=== PATIENT | male | born 1980 | race Caucasian/White ===

== ENCOUNTER 2017-08-27 20:15 | Emergency (ER) | payer BC ==
[~2017-08-27] VITALS: Ht 182.9 cm; Wt 138.0 kg
[~2017-08-27 20:15] MED LIST: CALC-5 PO
[2017-08-27 20:16] VITALS: Ht 182.9 cm; Wt 138.0 kg
[2017-08-27] MEDS ORDERED: ALUMINUM/MAGNESIUM SUSP 30 ML UDC PO STA (20:29)
[2017-08-27] MEDS ORDERED: RANITIDINE HCL 150 MG TAB PO ONE (20:30)
[2017-08-27 20:42] VITALS: O2SAT 96
[2017-08-27 20:47] LABS: BASO % 0.5 %; BASO ABS # 0.02 K/uL (0-0.2); EOS % 1.7 %; EOS ABS # 0.07 K/uL (0-0.5); HEMATOCRIT 45.3 % (42-52); HEMOGLOBIN 15.5 g/dL (14.0-18.0); IG# 0.01 K/uL (0.00-0.02); LYMPH % 28.7 %; LYMPH ABS # 1.17 K/uL (1.2-3.4); MEAN CORPUSCULAR HEMOGLOBIN 29.4 pg (25-34); MEAN CORPUSCULAR HGB CONC 34.2 g/dl (32-36); MONO % 12.8 %; MONO ABS # 0.52 K/uL (0.11-0.59); NEUT % 56.1 %; NEUT ABS # 2.28 K/uL (1.4-6.5); PLATELET COUNT 162 K/uL (130-400); RED CELL DISTRIBUTION WIDTH CV 12.7 % (11.5-14.5); WHITE BLOOD COUNT 4.07 K/uL (4.8-10.8)
[2017-08-27] MEDS ORDERED: OMEP20TA PO (20:57)
[2017-08-27 20:58] LABS: PTT PATIENT 24.7 SECONDS (21.0-31.0)
[2017-08-27 21:33] LABS: ALBUMIN 4.1 gm/dl (3.4-5.0); ALKALINE PHOSPHATASE 64 U/L (45-117); ALT/SGPT 60 U/L (12-78); AST/SGOT 33 U/L (15-37); BLOOD UREA NITROGEN 14 mg/dl (7-18); CALCIUM 8.5 mg/dl (8.5-10.1); CARBON DIOXIDE 28 mmol/L (21-32); GLUCOSE 99 mg/dl (70-99); LIPASE 106 U/L (73-393); POTASSIUM 3.7 mmol/L (3.5-5.1); SODIUM 140 mmol/L (136-145)
--- NOTE | 2017-08-27 22:05 | DIAGNOSTIC IMAGING REPORT ---
GALLBLADDER-ABD LIMITED HISTORY: 37 years-old Male epigastric pain acute epigastric abdominal pain COMPARISON: None available TECHNIQUE: Multiple real-time sonographic images of the abdominal right upper quadrant were obtained assessing grayscale appearance and color flow FINDINGS: Pancreas is obscured by bowel gas. Increased echogenicity of the liver with decreased penetration. No focal hepatic mass lesions or intrahepatic biliary ductal dilation identified. There is mild layering gallbladder sludge without shadowing cholelithiasis, wall thickening or pericholecystic fluid collections. Sonographic Plaza sign was not reported. Common bile duct is normal, 6 mm. The imaged right kidney is unremarkable without hydronephrosis. IMPRESSION: 1. Gallbladder sludge without cholelithiasis or sonographic evidence of acute cholecystitis. 2. Hepatic steatosis. 3. No biliary ductal dilation. The above report was generated using voice recognition software. It may contain grammatical, syntax or spelling errors. Electronically signed by: Paulie Silva M.D. 08/27/2017 10:03 PM Dictated Date/Time: 08/27/2017 10:01 PM
--- NOTE | 2017-08-27 22:33 | DIAGNOSTIC IMAGING REPORT ---
CHEST ONE VIEW PORTABLE HISTORY: 37 years-old Male CHEST PAIN acute atypical chest pain COMPARISON: Chest radiograph 03/11/2014 TECHNIQUE: Portable AP view of the chest FINDINGS: Cardiomediastinal and hilar silhouettes are within normal limits. No pneumothorax, pleural effusion, focal airspace consolidation or overt pulmonary edema. The bones of the chest appear grossly intact. IMPRESSION: No acute process. The above report was generated using voice recognition software. It may contain grammatical, syntax or spelling errors. Electronically signed by: Paulie Silva M.D. 08/27/2017 10:32 PM Dictated Date/Time: 08/27/2017 10:30 PM
[2017-08-27 23:19] VITALS: BP 147/77; PULSE 70; TEMP 36.6; O2SAT 96
--- NOTE | 2017-08-27 23:22 | EMERGENCY ROOM VISIT NOTE ---
History Report prepared by Zeferino: Ileana Reynolds Under the Supervision of: Dr. Michele Cramer D.O. First contact with patient: 20:21 Chief Complaint: CHEST PAIN Stated Complaint: TIGHTNESS/PRESSURE IN CHECT AND UPSET STOMACH History of Present Illness The patient is a 37 year old male who presents to the Emergency Room with complaints of constant chest pain starting yesterday afternoon. The patient describes the pain as a tightness in his chest. He reports that in the past he was here for something similar and everything came back normal. He reports that he followed up with his PCP who diagnosed him with GERD and started him on Prilosec twice a day. He states that he has been having more heart burn issues in the last 4-5 days, but yesterday seemed more intense. He states that it lightened up some this morning, but became worse throughout the day. He notes that the pain radiates into his left shoulder, but not into his arms or jaw. The patient notes that the pain is worse after eating. The patient complains of upper abdominal pain and not sleeping well last night. He notes that he was sick to his stomach 3 days ago and has had diarrhea. He reports that his daughter was sick with the stomach bug and the whole family has had diarrhea recently. The patient notes that his back is tight and states that he has been following with a chiropractor for it. The patient denies shortness of breath, being worse with exertion, swelling in legs, and leg pain. Source of History: patient Onset: yesterday afternoon Position: chest Quality: other (tightness) Timing: constant Modifying Factors (Worsening): eating Associated Symptoms: + nausea, + abdominal pain, + back pain, + diarrhea, No SOB Note: The patient complains of the pain radiating into his left shoulder and not sleeping well last night. The patient denies the pain radiating to his jaw, radiating down his arms, being worse with exertion, swelling in legs, and leg pain. Review of Systems See HPI for pertinent positives & negatives. A total of 10 systems reviewed and were otherwise negative. Past Medical & Surgical Medical Problems: (1) GERD (gastroesophageal reflux disease) Family History Blood clots FH: heart attack Heart disease Social History Smoking Status: Never Smoker Marital Status: Housing Status: lives with family Occupation Status: employed Current/Historical Medications Scheduled Omeprazole (Omeprazole), 20 MG PO DAILY Allergies Coded Allergies: No Known Allergies (Unverified , 03/11/14) Physical Exam Vital Signs Date Time Temp Pulse Resp B/P (MAP) Pulse Ox O2 Delivery O2 Flow Rate FiO2 08/27/17 23:19 36.6 70 18 147/77 96 Room Air 08/27/17 22:00 77 08/27/17 21:55 71 18 132/69 96 Room Air 08/27/17 20:42 96 Room Air 08/27/17 20:42 97 Room Air 08/27/17 20:42 97 Room Air 08/27/17 20:16 36.7 86 18 146/90 98 Room Air Physical Exam GENERAL: Patient is awake, alert, and in no acute distress. Patient is resting comfortably and showing no signs of anxiety EYES: The conjunctivae are clear. The pupils are round and reactive. EARS, NOSE, MOUTH AND THROAT: The nose is without any evidence of any deformity. Mucous membranes are moist tongue is midline NECK: The neck is nontender and supple. RESPIRATORY: Normal respiratory effort is noted there is no evidence of wheezing rhonchi or rales CARDIOVASCULAR: Regular rate and rhythm noted there no murmurs rubs or gallops normal S1 normal S2 GASTROINTESTINAL: The abdomen is soft. Bowel sounds are present in all quadrants. Abdomen is nontender MUSCULOSKELETAL/EXTREMITIES: There is no evidence of gross deformity full range of motion is noted in the hips and shoulders SKIN: There is no obvious evidence of any rash. There are no petechiae, pallor or cyanosis noted. NEUROLOGIC: Patient is awake alert and oriented x3 strength is symmetric. Medical Decision & Procedures ER Provider Diagnostic Interpretation: Radiology results as stated below per my review and radiologist interpretation: CHEST ONE VIEW PORTABLE HISTORY: 37 years-old Male CHEST PAIN acute atypical chest pain COMPARISON: Chest radiograph 03/11/2014 TECHNIQUE: Portable AP view of the chest FINDINGS: Cardiomediastinal and hilar silhouettes are within normal limits. No pneumothorax, pleural effusion, focal airspace consolidation or overt pulmonary edema. The bones of the chest appear grossly intact. IMPRESSION: No acute process. The above report was generated using voice recognition software. It may contain grammatical, syntax or spelling errors. Electronically signed by: Paulie Silva M.D. 08/27/2017 10:32 PM Dictated Date/Time: 08/27/2017 10:30 PM GALLBLADDER-ABD LIMITED HISTORY: 37 years-old Male epigastric pain acute epigastric abdominal pain COMPARISON: None available TECHNIQUE: Multiple real-time sonographic images of the abdominal right upper quadrant were obtained assessing grayscale appearance and color flow FINDINGS: Pancreas is obscured by bowel gas. Increased echogenicity of the liver with decreased penetration. No focal hepatic mass lesions or intrahepatic biliary ductal dilation identified. There is mild layering gallbladder sludge without shadowing cholelithiasis, wall thickening or pericholecystic fluid collections. Sonographic Plaza sign was not reported. Common bile duct is normal, 6 mm. The imaged right kidney is unremarkable without hydronephrosis. IMPRESSION: 1. Gallbladder sludge without cholelithiasis or sonographic evidence of acute cholecystitis. 2. Hepatic steatosis. 3. No biliary ductal dilation. The above report was generated using voice recognition software. It may contain grammatical, syntax or spelling errors. Electronically signed by: Paulie Silva M.D. 08/27/2017 10:03 PM Dictated Date/Time: 08/27/2017 10:01 PM Laboratory Results 08/27/17 20:38 Red Blood Count 5.27, Mean Corpuscular Volume 86.0, Mean Corpuscular Hemoglobin 29.4, Mean Corpuscular Hemoglobin Concent 34.2, Mean Platelet Volume 9.0, Neutrophils (%) (Auto) 56.1, Lymphocytes (%) (Auto) 28.7, Monocytes (%) (Auto) 12.8, Eosinophils (%) (Auto) 1.7, Basophils (%) (Auto) 0.5, Neutrophils # (Auto ) 2.28, Lymphocytes # (Auto) 1.17, Monocytes # (Auto) 0.52, Eosinophils # (Auto ) 0.07, Basophils # (Auto) 0.02 08/27/17 20:38 Test 08/27/17 20:38 White Blood Count 4.07 K/uL (4.8-10.8) Red Blood Count 5.27 M/uL (4.7-6.1) Hemoglobin 15.5 g/dL (14.0-18.0) Hematocrit 45.3 % (42-52) Mean Corpuscular Volume 86.0 fL (80-100) Mean Corpuscular Hemoglobin 29.4 pg (25-34) Mean Corpuscular Hemoglobin Concent 34.2 g/dl (32-36) Platelet Count 162 K/uL (130-400) Mean Platelet Volume 9.0 fL (7.4-10.4) Neutrophils (%) (Auto) 56.1 % Lymphocytes (%) (Auto) 28.7 % Monocytes (%) (Auto) 12.8 % Eosinophils (%) (Auto) 1.7 % Basophils (%) (Auto) 0.5 % Neutrophils # (Auto) 2.28 K/uL (1.4-6.5) Lymphocytes # (Auto) 1.17 K/uL (1.2-3.4) Monocytes # (Auto) 0.52 K/uL (0.11-0.59) Eosinophils # (Auto) 0.07 K/uL (0-0.5) Basophils # (Auto) 0.02 K/uL (0-0.2) RDW Standard Deviation 40.0 fL (36.4-46.3) RDW Coefficient of Variation 12.7 % (11.5-14.5) Immature Granulocyte % (Auto) 0.2 % Immature Granulocyte # (Auto) 0.01 K/uL (0.00-0.02) Prothrombin Time 10.8 SECONDS (9.0-12.0) Prothromb Time International Ratio 1.0 (0.9-1.1) Activated Partial Thromboplast Time 24.7 SECONDS (21.0-31.0) Partial Thromboplastin Ratio 1.0 Anion Gap 6.0 mmol/L (3-11) Est Creatinine Clear Calc Drug Dose 134.9 ml/min Estimated GFR () 100.3 Estimated GFR (Non- 86.5 BUN/Creatinine Ratio 12.4 (10-20) Calcium Level 8.5 mg/dl (8.5-10.1) Total Bilirubin 0.5 mg/dl (0.2-1) Direct Bilirubin mg/dl (0-0.2) Aspartate Amino Transf (AST/SGOT) 33 U/L (15-37) Alanine Aminotransferase (ALT/SGPT) 60 U/L (12-78) Alkaline Phosphatase 64 U/L (45-117) Troponin I < 0.015 ng/ml (0-0.045) Total Protein 8.0 gm/dl (6.4-8.2) Albumin 4.1 gm/dl (3.4-5.0) Lipase 106 U/L (73-393) Chemistry Specimen Hemolysis Laboratory results per my review. Medications Administered Medications (Trade) Dose Ordered Sig/Jean Route Start Time Stop Time Status Last Admin Dose Admin Al Hydroxide/Mg Hydroxide (Maalox Susp) 30 ml NOW STAT PO 08/27/17 20:29 08/27/17 20:30 DC 08/27/17 20:41 30 ML Ranitidine HCl (zANTac TAB) 150 mg NOW ONCE PO 08/27/17 20:30 08/27/17 20:31 DC 08/27/17 20:41 150 MG ECG Per My Interpretation Indication: chest pain Rate (beats per minute): 71 Rhythm: normal sinus Findings: no ectopy, other (no ST segment changes) Comparison ECG Date: 03/11/2014 Change: no significant change ED Course 2025: The patient was evaluated in room B10. A complete history and physical examination were performed. 2028: Ordered Maalox Susp 30 ml PO. 2029: Ordered Ranitidine HCl 150 mg PO. 0: Upon reevaluation, the patient is feeling better. I discussed the results and treatment plan with him. He verbalized agreement of the treatment plan. The patient was discharged home. 2310: The patient's heart score was calculated at this time and he scored a 1. Medical Decision Differential diagnosis: Etiologies such as cardiac ischemia, aortic dissection, pulmonary embolism, pneumonia, pneumothorax, musculoskeletal, infections, pericarditis, myocarditis , esophageal rupture, gastrointestinal, as well as others were entertained. Nursing notes reviewed. The patient is a 37-year-old male who presented to the emergency department for an evaluation of chest discomfort. The patient describes a burning in his chest. He has had similar episodes in the past with gastritis. The patient started taking his proton pump inhibitor 3 days ago with only minimal relief. The patient states his pain is not exertional but does get worsened with food. He experienced epigastric discomfort earlier. I discussed the patient's laboratory and radiographic studies with him. I also discussed the limitations of the emergency department workup for chest pain with him. The patient had a very low heart score. I feel that he can safely follow-up with his outpatient for further testing such as stress testing if needed. The patient was also encouraged to continue all medications as prescribed and avoid any strenuous activity. He was also encouraged to return to the emergency department immediately if symptoms change worsen or the need arises. Medication Reconcilliation Current Medication List: was personally reviewed by me Blood Pressure Screening Patient's blood pressure: Elevated blood pressure Blood pressure disposition: Elevated BP felt to be situational Impression Primary Impression: Chest pain Scribe Attestation The scribe's documentation has been prepared under my direction and personally reviewed by me in its entirety. I confirm that the note above accurately reflects all work, treatment, procedures, and medical decision making performed by me. Departure Information Dispostion Home / Self-Care Referrals Rahul Veras D.O. (PCP) Forms Call Back Authorization, HOME CARE DOCUMENTATION FORM, IMPORTANT VISIT INFORMATION Patient Instructions My [facility] Additional Instructions Call your family doctor in the morning to schedule a follow-up appointment. Discussed the possibility that you may require a stress test to further evaluate the cause your symptoms. Continue all medications as prescribed. Continue using Maalox or Mylanta as directed for symptomatic relief. Avoid any NSAID use such as ibuprofen or naproxen. Return to the emergency department immediately if symptoms change worsen or the need arises. Problem Qualifiers Primary Impression: Chest pain Chest pain type: unspecified Qualified Codes: R07.9 - Chest pain, unspecified
== END 2017-08-27 23:28 | disposition home or self-care (01) ==
LOC: C.EDB 20:15
DX: R07.9 Chest pain, unspecified (principal); R19.7 Diarrhea, unspecified; K21.9 Gastro-esophageal reflux disease without esophagitis; Z82.49 Family history of ischemic heart disease and other diseases of the circulatory system